=== PATIENT | male | born 1995 | race Caucasian/White ===

== ENCOUNTER 2022-09-23 19:54 | Emergency (ER) | payer BC, OTHER ==
[2022-09-23 19:59] VITALS: BP 127/78; PULSE 100; RESP 18; TEMP 99.4; BMI 25.1
[2022-09-23 21:34] LABS: PH,URINE 5.5 (5.0-8.0); URINE APPEARANCE CLEAR; URINE BILIRUBIN NEGATIVE (NEGATIVE); URINE COLOR YELLOW; URINE GLUCOSE (UA) NEGATIVE (NEGATIVE); URINE KETONE 1+ (NEGATIVE); URINE LEUK ESTERASE NEGATIVE (NEGATIVE); URINE NITRITE NEGATIVE (NEGATIVE); URINE PROTEIN NEGATIVE (NEGATIVE); URINE UROBILINOGEN 0.2 mg/dL (0.2-1.0)
[2022-09-23 23:23] LABS: HIV INTERPRETATION NEGATIVE (NEGATIVE)
[2022-09-23] MEDS ORDERED: SULFAMETHOXAZOLE/TRIMETHOPRIM 800MG/160MG D.S. TABLET PO ONE (23:51)
[2022-09-23] MEDS ORDERED: SULFAMETHOXAZOLE/TRIMETHOPRIM 800MG/160MG D.S. TABLET ONE (23:53)
== END 2022-09-23 23:57 | disposition home or self-care (01) ==
LOC: JER 19:54
DX: N50.89 Other specified disorders of the male genital organs (principal)
CPT/HCPCS: 36415; 76870-TC; 81003; 87086; 87389; 87491; 87591; 87661; 99284-25